=== PATIENT | female | born 1965 | race Caucasian/White ===

== ENCOUNTER → 2019-11-26 | Outpatient (CLI) | payer BC | LOC: MC.RAD 08:15 | DX: Z12.31 Encounter for screening mammogram for malignant neoplasm of breast (principal) ==

== ENCOUNTER 2021-05-29 07:44 | Emergency (ER) | payer BC ==
[~2021-05-29] VITALS: Ht 165.1 cm; Wt 75.0 kg
[2021-05-29 07:53] VITALS: TEMP 98.1
[2021-05-29] MEDS ORDERED: MEDROL 4MG DOSPA4 MG PO (09:04)
[2021-05-29] MEDS ORDERED: PERCOCET 325 MG1 TA2 PO (09:37)
[2021-05-29 09:59] VITALS: BP 150/76; PULSE 80
== END 2021-05-29 09:58 | disposition home or self-care (01) ==
LOC: COL.ER 07:44
DX: M54.16 Radiculopathy, lumbar region (principal)
CPT/HCPCS: J2270; J3360

== ENCOUNTER → 2022-03-04 | Outpatient (CLI) | payer BC ==
[~2022-03-04] MED LIST: MEDROL 4MG DOSPA4 MG PO; PERCOCET 325 MG1 TA2 PO
== END ==
LOC: MC.RAD 16:30
DX: Z12.31 Encounter for screening mammogram for malignant neoplasm of breast (principal)